=== PATIENT | male | born 1985 | race African-American/Black ===

== ENCOUNTER 2025-02-22 09:54 | Outpatient (CLI) | payer BC, OTHER | END 2025-02-22 09:55 | disposition home or self-care (01) | LOC: CSHMAMMO 09:54 | PROVIDERS: ATTEND Family Medicine | DX: N63.20 Unspecified lump in the left breast, unspecified quadrant (principal); N62 Hypertrophy of breast | CPT/HCPCS: 77066; G0279 ==